=== PATIENT | female | born 2000 | race Caucasian/White ===

== ENCOUNTER → 2023-08-11 | Outpatient (CLI) | payer OTHER | LOC: M CARPUL 13:11 | PROVIDERS: ATTEND Obstetrics & Gynecology | DX: R55 Syncope and collapse (principal) ==

== ENCOUNTER 2023-12-31 21:06 | Inpatient (IN) | payer OTHER ==
[~2023-12-31] VITALS: Ht 167.6 cm; Wt 88.5 kg
[2023-12-31] MEDS ORDERED: PEPC10TA6 PO (21:24)
[2023-12-31] MEDS ORDERED: PRENTAB9 PO (21:24)
[2023-12-31] MEDS ORDERED: HOME MED LIST COMPLETE! XX SCH (21:25)
[2023-12-31 21:29] VITALS: BP 121/68
[2023-12-31] MEDS ORDERED: TRANEXAMIC ACID INJection 1,000 MG in NS 100 ML IV PRN (21:55)
[2023-12-31] MEDS ORDERED: OXYTOCIN DRIP 30 UNITS in IV 1 EA IV PRN ×3 (21:55)
[2023-12-31] MEDS ORDERED: METHYLERGONOVINE MALEATE 0.2MG/ML 1ML VIAL IM PRN (21:55)
[2023-12-31] MEDS ORDERED: LR 1,000 ML IV SCH (21:55)
[2023-12-31] MEDS ORDERED: CARBOPROST TROMETHAMINE 250 MCG/ML AMP IM PRN (21:55)
[2023-12-31] MEDS ORDERED: OXYTOCIN INJ 10UNITS/ML 1ML VIAL IV PRN (21:55)
[2023-12-31] MEDS ORDERED: OXYTOCIN INJ 10UNITS/ML 1ML VIAL IM PRN (21:55)
[2023-12-31] MEDS ORDERED: LIDOCAINE 1% MDV 20ML VIAL INFIL PRN (21:55)
[2023-12-31 22:03] LABS: HEMATOCRIT 34.7 % (36.0-47.0); HEMOGLOBIN 11.6 g/dl (12.0-15.5); MEAN CORPUSCULAR HEMOGLOBIN 29.7 pg (27.0-33.0); MEAN CORPUSCULAR HGB CONC 33.4 g/dl (32.0-36.5); PLATELET COUNT, AUTOMATED 200 10^3/uL (150-450); WHITE BLOOD COUNT 9.6 10^3/uL (4.0-10.0)
[2023-12-31] MEDS: miSOPROStol 50MCG 1/2 TABLET PO PRN (22:33)
[2023-12-31 22:35] VITALS: BP 143/66
[2023-12-31 23:15] VITALS: BP 109/55
[2024-01-01] VITALS (48 sets, daily range): BP systolic 103–137; BP diastolic 52–76; O2SAT 98
[2024-01-01] MEDS: LR 1,000 ML IV SCH (11:11)
[2024-01-01] MEDS: OXYTOCIN DRIP 30 UNITS in IV 1 EA IV SCH ×2 (11:11→20:54)
[2024-01-01] MEDS: LACTATED RINGER'S 1000 ML IV STA (14:09)
[2024-01-01] MEDS ORDERED: NALOXONE INJ 0.4MG/1ML VIAL IV PRN (15:00)
[2024-01-01] MEDS ORDERED: LR 500 ML IV PRN (15:00)
[2024-01-01] MEDS ORDERED: diphenhydrAMINE 50MG/ML VIAL IV PRN (15:00)
[2024-01-01] MEDS ORDERED: EPIDURAL/PCA KEYS XX PRN (15:00)
[2024-01-01] MEDS ORDERED: ONDANSETRON 4MG 2ML VIAL IV PRN ×2 (15:00→20:00)
[2024-01-01] MEDS ORDERED: ePHEDrine SULFATE 25 MG/5 ML(5MG/ML) SYRINGE IVP PRN (15:00)
[2024-01-01] MEDS: FENTANYL/ROPIVACAINE/NACL BAG 100 ML EPIDURAL SCH (15:29)
[2024-01-01] MEDS ORDERED: RHOGAM 300MCG (1500IU) INJ IM SCH (20:00)
[2024-01-01] MEDS ORDERED: DIBUCAINE 1% OINTMENT 30GM TOP PRN (20:00)
[2024-01-01] MEDS ORDERED: METHYLERGONOVINE MALEATE 0.2MG/ML 1ML VIAL IM PRN (20:00)
[2024-01-01] MEDS ORDERED: ACETAMINOPHEN TAB 650MG DOSE (2X325MG) PO PRN (20:00)
[2024-01-01] MEDS ORDERED: IBUPROFEN 600MG TAB PO PRN (20:00)
[2024-01-01] MEDS ORDERED: METOCLOPRAMIDE INJ 10MG/2ML VIAL IV PRN (20:00)
[2024-01-01] MEDS: ACETAMINOPHEN 500 MG TAB PO PRN (20:54)
[2024-01-01] MEDS: FAMOTIDINE 20 MG TAB PO SCH (21:00)
[2024-01-01] MEDS: IBUPROFEN 800 MG TAB PO PRN (23:17)
[2024-01-02] MEDS: DOCUSATE SODIUM 100MG CAPSULE PO PRN (02:33)
[2024-01-02 05:59] VITALS: BP 116/56; O2SAT 99
[2024-01-02] MEDS: PRENATAL VITAMINS CHEWABLE TABLET PO SCH (08:38)
[2024-01-02] MEDS ORDERED: PRENATAL VITAMINS CHEWABLE TABLET PO SCH (09:00)
[2024-01-02 17:59] VITALS: BP 120/63; O2SAT 97
[2024-01-03 06:00] VITALS: BP 119/65; O2SAT 98
[2024-01-03] MEDS: MEASLES,MUMPS,RUBELLA VACCINE INJ (MMR-II) SC.IMMUN ONE (07:02)
== END 2024-01-03 12:19 | disposition home or self-care (01) | DRG 807 ==
LOC: M LDI 21:06 → M OBS 01-01 21:33
PROVIDERS: ADMIT Obstetrics & Gynecology; ATTEND Obstetrics & Gynecology
PROC: 3E033VJ Introduction of Other Hormone into Peripheral Vein, Percutaneous Approach (ICD-10-PCS; 2023-12-31)
PROC: 10E0XZZ Delivery of Products of Conception, External Approach (ICD-10-PCS; principal; 2024-01-01)
PROC: 0KQM0ZZ Repair Perineum Muscle, Open Approach (ICD-10-PCS; 2024-01-01)
DX: O70.1 Second degree perineal laceration during delivery (principal); Z37.0 Single live birth; Z3A.39 39 weeks gestation of pregnancy; O71.89 Other specified obstetric trauma

== ENCOUNTER 2024-01-17 01:27 | Emergency (ER) | payer OTHER ==
[~2024-01-17] VITALS: Ht 168.9 cm; Wt 79.6 kg
[~2024-01-17 01:27] MED LIST: PEPC10TA6 PO; PRENTAB9 PO
[2024-01-17] MEDS ORDERED: SERT25TA21 (01:44)
[2024-01-17] MEDS: ACETAMINOPHEN TAB 650MG DOSE (2X325MG) PO ONE (06:56)
[2024-01-17] MEDS: KETOROLAC 60MG 2ML VIAL IM ONE (06:57)
[2024-01-17] MEDS ORDERED: KETO10TAB PO (07:28)
[2024-01-17] MEDS ORDERED: METH-1165 PO (07:28)
[2024-01-17 07:32] VITALS: BP 138/75; TEMP 98.3; O2SAT 98
== END 2024-01-17 07:39 | disposition home or self-care (01) ==
LOC: M ED 01:27
DX: M43.6 Torticollis (principal); M62.838 Other muscle spasm; Z79.899 Other long term (current) drug therapy
CPT/HCPCS: 96372; 99283; J1885

== ENCOUNTER → 2025-06-14 | Outpatient (CLI) | payer OTHER ==
[~2025-06-14] MED LIST changes: +ACET-897 PO; +KETO10TAB PO; +METH-1165 PO; +SERT25TA21
== END ==
LOC: M WHC 09:09
PROVIDERS: ATTEND Specialist
DX: Z12.11 Encounter for screening for malignant neoplasm of colon (principal)

== ENCOUNTER → 2025-08-17 | Outpatient (REF) | payer OTHER | LOC: M PLALAB 08:51 | PROVIDERS: ATTEND Nurse Practitioner Family | DX: Z53.9 Procedure and treatment not carried out, unspecified reason (principal) ==

== ENCOUNTER → 2025-08-17 | Outpatient (CLI) | payer OTHER ==
[2025-08-17 14:27] LABS: PLATELET COUNT, AUTOMATED 271 10^3/uL (150-450)
[2025-08-17 15:28] LABS: HIV 1&2 SCREEN NEGATIVE (NEGATIVE)
[2025-08-17 15:37] LABS: HEPATITIS C VIRUS ABY INDEX < 0.02 INDEX (<0.8)
[2025-08-17 15:38] LABS: Trichomonas vaginalis (AMP) NOT DETECTED (NEGATIVE)
[2025-08-17 16:01] LABS: GC DNA AMPLIFICATION NEGATIVE (NEGATIVE)
== END ==
LOC: M PLALAB 09:10
PROVIDERS: ATTEND Nurse Practitioner Family
DX: Z34.80 Encounter for supervision of other normal pregnancy, unspecified trimester (principal)